=== PATIENT | female | born 1990 | race American Indian/Alaskan Native ===

== ENCOUNTER 2018-04-15 13:55 | Emergency (ER) | payer OTHER, MEDICAID ==
[2018-04-15 14:05] VITALS: BP 141/93
[2018-04-15] MEDS ORDERED: MOTRIN PO ONE (16:52)
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
== END 2018-04-15 19:20 | disposition home or self-care (01) ==
LOC: ED 13:55
DX: R51 Headache (principal)
CPT/HCPCS: 70450; 99283

== ENCOUNTER 2020-08-27 23:22 | Emergency (ER) | payer MEDICAID ==
[2020-08-28 02:02] LABS: Basophils % (Auto) 0.1 % (0.0-1.8); Eosinophils % (Auto) 0.2 % (0.0-4.3); Hematocrit 38.4 % (30.3-42.9); Hemoglobin 12.8 gm/dl (10.1-14.3); Lymphocytes # (Auto) 1.4 K/mm3 (1.2-5.4); Lymphocytes % (Auto) 10.6 % (13.4-35.0); Mean Corpuscular HGB Conc 33 % (30-34); Mean Corpuscular Volume 83 fl (79-97); Monocytes # (Auto) 0.6 K/mm3 (0.0-0.8); Monocytes % (Auto) 4.7 % (0.0-7.3); Platelet Count 257 K/mm3 (140-440); Red Blood Count 4.64 M/mm3 (3.65-5.03); Red Cell Distribution Width 13.7 % (13.2-15.2)
[2020-08-28 02:27] LABS: Alanine Aminotransferase 188 units/L (7-56); Albumin 4.2 g/dL (3.9-5); BUN/Creatinine Ratio 13; Blood Urea Nitrogen 10 mg/dL (7-17); Calcium 9.1 mg/dL (8.4-10.2); Hemolysis Index 0
[2020-08-28 03:10] LABS: Bilirubin,Urine NEG (Negative); Color,Urine Amber (Yellow)
[2020-08-28 03:11] LABS: Blood,Urine NEG (Negative); Mucus,Urine 2+ /HPF; Protein,Urine <15 mg/dL mg/dL (Negative)
[2020-08-28] MEDS ORDERED: METOCLOPRAMIDE 10 MG TAB PO ONE (03:42)
[2020-08-28] MEDS ORDERED: diphenhydrAMINE 25 MG CAP PO ONE (03:42)
--- NOTE | 2020-08-28 05:18 | Emergency Department Report ---
ED Abdominal Pain HPI - General Chief Complaint: Abdominal Pain Stated Complaint: ABDOMINAL/SHOULDER PAIN DIFF BREATHING Time Seen by Provider: 08/28/20 03:39 Source: patient Mode of arrival: Ambulatory Limitations: No Limitations - History of Present Illness Initial Comments: Patient is a 30-year-old -[place] female who presents for right upper quadrant abdominal pain that radiates to her right shoulder with nausea and vomiting for 3 days. Patient states symptoms are intermittent rated at 4/10. Patient is tolerating p.o. liquids at this time however. There has been no fever or chills. Last nausea vomiting last night. There is no back pain. Patient advises not last menstrual cycle 2 weeks ago. Patient is not taking PPI or H2 bianca for hx of GERD. MD Complaint: abdominal pain Onset/Timin -: days(s) Location: RUQ Radiation: epigastric, other (Right Shoulder) Migration to: no migration Severity: moderate Severity scale (0 -10): 5 Quality: aching Consistency: intermittent Improves With: nothing Worsens With: eating Associated Symptoms: nausea, vomiting, diarrhea. denies: fever, constipation, dysuria, melena, hematuria - Related Data LMP Date: 08/12/20 Home Medications Medication Instructions Recorded Confirmed Last Taken Acyclovir Sodium [Acyclovir INJ] 11/25/13 11/25/13 Unknown Previous Rx's Medication Instructions Recorded Last Taken Type Amoxicillin [Amoxicillin TAB] 875 mg PO BID #20 tablet 11/25/13 Unknown Rx Promethazine [Phenergan] 25 mg PO Q6H PRN #12 tablet 11/25/13 Unknown Rx Cyclobenzaprine [Flexeril] 10 mg PO QHS PRN #7 tablet 04/15/18 Unknown Rx Ibuprofen [Motrin] 600 mg PO Q8H PRN #30 tablet 04/15/18 Unknown Rx Famotidine [Pepcid] 20 mg PO BID #60 tablet 08/28/20 Unknown Rx traMADoL [Ultram] 50 mg PO Q6HR PRN #12 tablet 08/28/20 Unknown Rx Allergies Allergy/AdvReac Type Severity Reaction Status Date / Time No Known Allergies Allergy Unverified 11/25/13 18:13 ED Review of Systems ROS: Stated complaint: ABDOMINAL/SHOULDER PAIN DIFF BREATHING Other details as noted in HPI Constitutional: denies: chills, fever Eyes: denies: eye pain, eye discharge, vision change ENT: denies: ear pain, throat pain Respiratory: denies: cough, shortness of breath, wheezing Cardiovascular: denies: chest pain, palpitations Endocrine: no symptoms reported Gastrointestinal: abdominal pain, nausea, vomiting. denies: diarrhea, constipation, hematemesis, melena, hematochezia Genitourinary: frequency, hematuria. denies: urgency, dysuria, discharge Musculoskeletal: denies: back pain, joint swelling, arthralgia Skin: denies: rash, lesions Neurological: denies: headache, weakness, paresthesias Psychiatric: denies: anxiety, depression Hematological/Lymphatic: denies: easy bleeding, easy bruising ED Past Medical Hx - Past Medical History Previous Medical History?: Yes Hx Psychiatric Treatment: Yes (Anxiety) Additional medical history: Anxiety - Surgical History Past Surgical History?: Yes Additional Surgical History: Gastric Sleeve - Social History Smoking Status: Never Smoker Substance Use Type: None - Medications Home Medications: Home Medications Medication Instructions Recorded Confirmed Last Taken Type Acyclovir Sodium [Acyclovir INJ] 11/25/13 11/25/13 Unknown History Amoxicillin [Amoxicillin TAB] 875 mg PO BID #20 tablet 11/25/13 Unknown Rx Promethazine [Phenergan] 25 mg PO Q6H PRN #12 tablet 11/25/13 Unknown Rx Cyclobenzaprine [Flexeril] 10 mg PO QHS PRN #7 tablet 04/15/18 Unknown Rx Ibuprofen [Motrin] 600 mg PO Q8H PRN #30 tablet 04/15/18 Unknown Rx Famotidine [Pepcid] 20 mg PO BID #60 tablet 08/28/20 Unknown Rx traMADoL [Ultram] 50 mg PO Q6HR PRN #12 tablet 08/28/20 Unknown Rx ED Physical Exam - General Limitations: No Limitations General appearance: alert, in no apparent distress - Head Head exam: Present: atraumatic, normocephalic - Eye Eye exam: Present: normal appearance, EOMI Pupils: Present: normal accommodation - ENT ENT exam: Present: mucous membranes moist - Neck Neck exam: Present: normal inspection, full ROM. Absent: lymphadenopathy - Respiratory Respiratory exam: Present: normal lung sounds bilaterally. Absent: respiratory distress - Cardiovascular Cardiovascular Exam: Present: regular rate, normal rhythm. Absent: systolic murmur, diastolic murmur, rubs, gallop - GI/Abdominal GI/Abdominal exam: Present: soft, distended, tenderness (RUQ), normal bowel sounds. Absent: guarding, rebound, rigid, bruit, hernia - Expanded GI/Abdominal Exam Expanded GI/Abdominal exam: Present: Galloway's sign. Absent: psoas sign, obturator sign, heel tap sign, Rovsing's sign, tenderness at Mcburney's Point, ascites - Rectal Rectal exam: Present: deferred - Extremities Exam Extremities exam: Present: normal inspection, full ROM. Absent: tenderness - Back Exam Back exam: Present: normal inspection, full ROM. Absent: tenderness, CVA tenderness (R), CVA tenderness (L) - Neurological Exam Neurological exam: Present: alert, oriented X3, CN II-XII intact, normal gait - Psychiatric Psychiatric exam: Present: normal affect, normal mood - Skin Skin exam: Present: warm, dry, intact, normal color. Absent: rash ED Course Vital Signs 08/28/20 00:53 Temperature 99.3 F Pulse Rate 77 Respiratory 18 Rate Blood Pressure 120/74 O2 Sat by Pulse 100 Oximetry ED Medical Decision Making - Lab Data Result diagrams: 08/28/20 01:34 08/28/20 01:34 - Radiology Data Radiology results: report reviewed, image reviewed - Medical Decision Making US RUQ: WBC 12.2, ,pt is tolerating po intake , there is no fever or chills, no n/v , plan dc to home wth rx for pepcid, ultram,PT will follow up GI and PCP in 2-3 days , pt verbalized agreement and understanding of discharge plan. Critical care attestation.: If time is entered above; I have spent that time in minutes in the direct care of this critically ill patient, excluding procedure time. ED Disposition Clinical Impression: Cholelithiasis Qualifiers: Cholelithiasis location: gallbladder Cholecystitis presence: without cholecystitis Biliary obstruction: without biliary obstruction Qualified Code(s): K80.20 - Calculus of gallbladder without cholecystitis without obstruction Disposition: DC-01 TO HOME OR SELFCARE Is pt being admited?: No Does the pt Need Aspirin: No Condition: Stable Instructions: Abdominal Pain (ED) Prescriptions: Famotidine [Pepcid] 20 mg PO BID #60 tablet traMADoL [Ultram] 50 mg PO Q6HR PRN #12 tablet PRN Reason: Pain Referrals: [facility] [Provider Group] - 3-5 Days Forms: Work/School Release Form(ED) Time of Disposition: 06:19
[2020-08-28 06:36] VITALS: BP 120/78
--- NOTE | 2020-08-28 08:13 | Ultrasound Report ---
US abdomen limited INDICATION / CLINICAL INFORMATION: RUQ pain with n/v r/o gallstones. COMPARISON: None available. FINDINGS: Questionable stones are present in the gallbladder. The common bile duct is normal measuring 2 mm. Ga llbladder wall thickness is normal. Visualized portions of the liver, pancreas and aorta are normal. IMPRESSION: Questionable stones in gallbladder. Signer Name: Gary Desai MD FACR Signed: 08/28/2020 8:08 AM Workstation Name: [id number]
== END 2020-08-28 06:23 | disposition home or self-care (01) ==
LOC: ED 23:22
DX: K80.20 Calculus of gallbladder without cholecystitis without obstruction (principal); F41.9 Anxiety disorder, unspecified; Z79.899 Other long term (current) drug therapy
CPT/HCPCS: 36415; 76705; 80053; 81001; 83690; 84703; 85025